=== PATIENT | male | born 1980 | race African-American/Black ===

== ENCOUNTER 2018-07-20 16:20 | Emergency (ER) | payer MEDICAID ==
[~2018-07-20] VITALS: Ht 175.3 cm; Wt 59.1 kg
[2018-07-20 16:25] VITALS: Ht 175.3 cm; Wt 59.1 kg
[2018-07-20] MEDS ORDERED: NEURONTIN 300300 MG PO (16:41)
[2018-07-20] MEDS ORDERED: KLONOPIN1 MG PO (16:41)
[2018-07-20] MEDS ORDERED: ADDERALL 20 MG20 M1 PO (16:41)
[2018-07-20 17:10] LABS: BASOPHILS 0.2 % (0-2); EOSINOPHILS 1.1 % (0-7); HEMATOCRIT 40.1 % (42.0-54.0); HEMOGLOBIN 14.4 g/dL (13.5-17.5); IMMATURE GRANULOCYTES 0.2 % (0-5); LYMPHOCYTES 10.5 % (15-50); MCH 30.6 pg (26.0-34.0); MCHC 35.9 g/dL (31.0-37.0); MCV 85.3 fL (80.0-100.0); MEAN PLATELET VOLUME 9.1 fL (7.4-10.4); MONOCYTES 11.1 % (2-11); NEUTROPHILS 76.9 % (40-80); PLATELET COUNT 263 10x3/uL (130-400); RDW 14.2 % (11.5-14.5); WBC 12.2 10x3/uL (4.8-10.8)
[2018-07-20 17:27] LABS: ALBUMIN 4.3 g/dL (3.4-5.0); ANION GAP 13.3 mmol/L (8-16); BILIRUBIN - TOTAL 0.3 mg/dL (0.2-1.3); CALCIUM 8.8 mg/dL (8.5-10.1); CARBON DIOXIDE 26.3 mmol/L (21.0-32.0); CREATININE - SERUM 1.3 mg/dL (0.6-1.3); POTASSIUM - SERUM 3.6 mmol/L (3.5-5.1); PROTEIN - SERUM 7.9 g/dL (6.4-8.2)
[2018-07-20] MEDS ORDERED: BACTRIM DS TABL1 TAB PO (19:05)
[2018-07-20] MEDS ORDERED: TYLENOL W/CODEI1 TAB PO (19:05)
[2018-07-20 19:29] VITALS: BP 126/88
== END 2018-07-20 19:30 | disposition home or self-care (01) ==
LOC: D.ER 16:20
PROVIDERS: Family Medicine
DX: S01.81XA Laceration without foreign body of other part of head, initial encounter (principal); S01.01XA Laceration without foreign body of scalp, initial encounter; Y04.2XXA Assault by strike against or bumped into by another person, initial encounter; Y93.89 Activity, other specified; Y92.019 Unspecified place in single-family (private) house as the place of occurrence of the external cause; F17.200 Nicotine dependence, unspecified, uncomplicated; F90.9 Attention-deficit hyperactivity disorder, unspecified type